=== PATIENT | female | born 1940 | race Caucasian/White ===

== ENCOUNTER 2016-04-04 14:24 | Emergency (ER) | payer MEDICARE ==
[~2016-04-04] VITALS: Ht 167.6 cm; Wt 44.0 kg
[~2016-04-04 14:24] MED LIST: ACCUNEB SOL3 ML/NE1 IN; ADVAIR DISK28 PUFFS IN; AZITHROMYCIN500 MG PO; IPRATROPIUM 2.2.5 ML IH; LEVAQUIN 750 M750 MG PO; MEDROL 4MG. DOSE4 MG PO; NICOTINE PATCH;14 MG TD; PREDNISONE 10MG10 MG PO; PREDNISONE 20MG20 MG PO; RITE AID ASPIRI81 M1 PO; RT-ACCUNEB S3 ML/AMP IN; SPIRIVA HA1 PUFF/INH IH; ZITHROMAX Z PA250 MG PO
--- NOTE | 2016-04-04 15:06 | Urgent Treatment Center Report ---
History of Present Issue Date/Time Seen by Provider 04/04/16 0242 Visit Reason Pt arrived:Walked Presenting Problem:PATIENT STATES HER EARS ARE STOPPED UP. PATIENT DENIES PAIN. Location if Accident: Onset of symptoms date/time:/ or onset unknown for:MEDICAL HX UNKNOWN Have you (or family members/close friends) recently traveled outside the [place]? N If Yes, where/when: Have you had exposure to infectious disease within the past month? TB? Other? Specify: c/o left ear "stopped up" and can't hear. Gradual in both ears over the last 2-3 weeks but worse in left ear last 3-4 days despite unknown oil for wax and trying to clean out ears. "I can't hardly hear on the phone". Denies ear pain, sore throat, headache. "Just these ears is all". Source patient Exam Limitations no limitations ALLERGIES Coded Allergies: No Known Allergies (03/24/16) Home Medications Active Scripts ALBUTEROL SULFATE (Rt-Accuneb 1.25MG/3ML) 1.25 MG IN QID #120 NEB Ref 2 Prov: 01/31/14 Ipratropium [place] (Ipratropium 0.5MG Neb Soln) 0.5 MG IH QID #120 ML Ref 2 Prov: 01/31/14 Prednisone (Prednisone 10MG) 10 MG PO DAILY #27 TAB Prov: 03/24/16 Reported Medications FLUTICASONE/SALMETEROL (Advair 500-50 Diskus) 1 PUFF IN BID 30 Days Tiotropium [place] (Spiriva) 1 PUFF IH DAILY 30 Days Aspirin ([facility] Aspirin Chewable) 81 MG PO DAILY History Medical History General CAD? No Angina: Yes [place]: No Hypertension? No Hyperlipidemia? No CHF? No DVT? No PE? No COPD? Yes Asthma? No Anemia? No GERD? No Gastric ulcers? No GI Bleed? No Hernia? No Thyroid Problems? No Hypothyroidism? No CVA? No Seizures? No Diabetes? No Renal Insuffiency? No UTI? No Stones? Yes BPH? No GB Disease: Yes Nephritic Syndrome? No Asplenia? No Hepatitis? No Sickle Cell Disease? No Arthritis? No Migraines? No Cataracts? No Glaucoma? No MRSA? No HIV? No TB? No Anxiety? No Depression? No Cancer? No More? No Immunization HX DT/Tetanus Unknown Flu 2014-15FSN Pneumonia Received In Past Surgical Hx Previous Surgery?Y Tubal Ligation Appendix [place] BILATERAL CATARACTS Family History Family HX Diabetes Yes CAD Yes Hypertension Yes Hyperlipidemia Yes Cancer No TB No Social History Smoking Hx Smoker: Former Smoker Tobacco: No Packs/day < 1 Pack Alcohol Alcohol: No Review of Systems All Other Systems Reviewed and Negative Constitutional denies fever, denies malaise Eyes denies no symptoms reported ENT see HPI. denies: ear discharge, nose discharge, nose congestion. Respiratory other (baseline cough, SOA) Gastrointestinal denies nausea Psychiatric/Neurological see HPI, denies other (dizziness) Physical Exam Vital Signs Vital Signs Date Time Temp Pulse Resp B/P Pulse O2 O2 Flow FiO2 Ox Delivery Rate 04/04 1433 98.3 108 22 119/96 91 General Appearance mild SOA, wearing portable oxygen, frail Eye Exam - bilateral eye normal exam Ear, Nose, Throat normal pharynx, cerumen impaction bilateral EACs blocking view of TMs Neck non-tender, supple Respiratory Status No: non productive cough. Cardiovascular no peripheral edema Neurologic alert Skin warm/dry Medical Decision Making LABS/Meds/Orders Pt receiving controlled substance in ED? No Progress [facility] Progress Notes Date 04/04/16 Time 1504 Comment Stephanie at BS irrigating EACs Despite 30 minutes attempting to irrigate w/ warm water and peroxide as well as using currette, unable to remove hard impacted cerumen. Departure Departure Time of Disposition 1539 Disposition DC Home or Self Care(routine) Clinical Impression Primary Impression: Impacted cerumen of both ears Secondary Impressions: Hearing decreased Qualifiers: Laterality: bilateral Qualified Code: H91.93 - Unspecified hearing loss, bilateral Condition STABLE Referrals Nuno Morton MD (Family) Patient Instructions DI for Cerumen Impaction Additional Instructions Debrox over the counter ear drops 3x/day for 4-7 days then return to [facility] or primary care for repeat ear irrigation no cotton swabs Discharge Counseling Counseled pt/family regarding diagnosis, medications/RX, home care, follow up needs Prescriptions Current Visit Scripts Carbamide Peroxide (Debrox) 1 DROP OT TID #1 BOTTLE for 4-7 days at 1541
--- NOTE | 2016-04-04 15:06 | Urgent Treatment Center Report ---
History of Present Issue Date/Time Seen by Provider 04/04/16 5322 Visit Reason Pt arrived:Walked Presenting Problem:PATIENT STATES HER EARS ARE STOPPED UP. PATIENT DENIES PAIN. Location if Accident: Onset of symptoms date/time:/ or onset unknown for:MEDICAL HX UNKNOWN Have you (or family members/close friends) recently traveled outside the [place]? N If Yes, where/when: Have you had exposure to infectious disease within the past month? TB? Other? Specify: c/o left ear "stopped up" and can't hear. Gradual in both ears over the last 2-3 weeks but worse in left ear last 3-4 days despite unknown oil for wax and trying to clean out ears. "I can't hardly hear on the phone". Denies ear pain, sore throat, headache. "Just these ears is all". Source patient Exam Limitations no limitations ALLERGIES Coded Allergies: No Known Allergies (03/24/16) Home Medications Active Scripts ALBUTEROL SULFATE (Rt-Accuneb 1.25MG/3ML) 1.25 MG IN QID #120 NEB Ref 2 Prov: 01/31/14 Ipratropium [place] (Ipratropium 0.5MG Neb Soln) 0.5 MG IH QID #120 ML Ref 2 Prov: 01/31/14 Prednisone (Prednisone 10MG) 10 MG PO DAILY #27 TAB Prov: 03/24/16 Reported Medications FLUTICASONE/SALMETEROL (Advair 500-50 Diskus) 1 PUFF IN BID 30 Days Tiotropium [place] (Spiriva) 1 PUFF IH DAILY 30 Days Aspirin ([facility] Aspirin Chewable) 81 MG PO DAILY History Medical History General CAD? No Angina: Yes [place]: No Hypertension? No Hyperlipidemia? No CHF? No DVT? No PE? No COPD? Yes Asthma? No Anemia? No GERD? No Gastric ulcers? No GI Bleed? No Hernia? No Thyroid Problems? No Hypothyroidism? No CVA? No Seizures? No Diabetes? No Renal Insuffiency? No UTI? No Stones? Yes BPH? No GB Disease: Yes Nephritic Syndrome? No Asplenia? No Hepatitis? No Sickle Cell Disease? No Arthritis? No Migraines? No Cataracts? No Glaucoma? No MRSA? No HIV? No TB? No Anxiety? No Depression? No Cancer? No More? No Immunization HX DT/Tetanus Unknown Flu 2014-15FSN Pneumonia Received In Past Surgical Hx Previous Surgery?Y Tubal Ligation Appendix [place] BILATERAL CATARACTS Family History Family HX Diabetes Yes CAD Yes Hypertension Yes Hyperlipidemia Yes Cancer No TB No Social History Smoking Hx Smoker: Former Smoker Tobacco: No Packs/day < 1 Pack Alcohol Alcohol: No Review of Systems All Other Systems Reviewed and Negative Constitutional denies fever, denies malaise Eyes denies no symptoms reported ENT see HPI. denies: ear discharge, nose discharge, nose congestion. Respiratory other (baseline cough, SOA) Gastrointestinal denies nausea Psychiatric/Neurological see HPI, denies other (dizziness) Physical Exam Vital Signs Vital Signs Date Time Temp Pulse Resp B/P Pulse O2 O2 Flow FiO2 Ox Delivery Rate 04/04 1433 98.3 108 22 119/96 91 General Appearance mild SOA, wearing portable oxygen, frail Eye Exam - bilateral eye normal exam Ear, Nose, Throat normal pharynx, cerumen impaction bilateral EACs blocking view of TMs Neck non-tender, supple Respiratory Status No: non productive cough. Cardiovascular no peripheral edema Neurologic alert Skin warm/dry Medical Decision Making LABS/Meds/Orders Pt receiving controlled substance in ED? No Progress [facility] Progress Notes Date 04/04/16 Time 1504 Comment Stephanie at BS irrigating EACs Despite 30 minutes attempting to irrigate w/ warm water and peroxide as well as using currette, unable to remove hard impacted cerumen. Departure Departure Time of Disposition 1539 Disposition DC Home or Self Care(routine) Clinical Impression Primary Impression: Impacted cerumen of both ears Secondary Impressions: Hearing decreased Qualifiers: Laterality: bilateral Qualified Code: H91.93 - Unspecified hearing loss, bilateral Condition STABLE Referrals Nuno Morton MD (Family) Patient Instructions DI for Cerumen Impaction Additional Instructions Debrox over the counter ear drops 3x/day for 4-7 days then return to [facility] or primary care for repeat ear irrigation no cotton swabs Discharge Counseling Counseled pt/family regarding diagnosis, medications/RX, home care, follow up needs Prescriptions Current Visit Scripts Carbamide Peroxide (Debrox) 1 DROP OT TID #1 BOTTLE for 4-7 days at 1545
[2016-04-04] MEDS ORDERED: DEBROX15 ML OT (15:41)
[2016-04-04 16:00] VITALS: BP 119/96
== END 2016-04-04 16:01 | disposition home or self-care (01) ==
LOC: UTC 14:24
DX: H91.93 Unspecified hearing loss, bilateral (principal); H61.23 Impacted cerumen, bilateral

== ENCOUNTER 2016-04-08 12:48 | Emergency (ER) | payer MEDICARE ==
[~2016-04-08] VITALS: Ht 167.6 cm; Wt 45.4 kg
[~2016-04-08 12:48] MED LIST changes: +DEBROX15 ML OT
--- NOTE | 2016-04-08 14:42 | Urgent Treatment Center Report ---
History of Present Issue Date/Time Seen by Provider 04/08/16 1423 Visit Reason Pt arrived:Walked Presenting Problem:L EAR IMPACTED W/ WAX Location if Accident: Onset of symptoms date/time:04/04/1611/11/1199 or onset unknown for: Have you (or family members/close friends) recently traveled outside the [place]? N If Yes, where/when: Have you had exposure to infectious disease within the past month? TB? Other? Specify: Return today still c/o decreased hearing on left. Was seen in clinic 4 days ago and found to have impacted cerumen that we were unable to remove in clinic. Has used debrox as instructed and returns today hoping to have cerumen completely removed as leaving for vacation later this week. Denies pain. Source patient Exam Limitations no limitations ALLERGIES Coded Allergies: No Known Allergies (03/24/16) Home Medications Active Scripts ALBUTEROL SULFATE (Rt-Accuneb 1.25MG/3ML) 1.25 MG IN QID #120 NEB Ref 2 Prov: 01/31/14 Ipratropium [place] (Ipratropium 0.5MG Neb Soln) 0.5 MG IH QID #120 ML Ref 2 Prov: 01/31/14 Prednisone (Prednisone 10MG) 10 MG PO DAILY #27 TAB Prov: 03/24/16 Carbamide Peroxide (Debrox) 1 DROP OT TID #1 BOTTLE Prov: 04/04/16 Reported Medications FLUTICASONE/SALMETEROL (Advair 500-50 Diskus) 1 PUFF IN BID 30 Days Tiotropium [place] (Spiriva) 1 PUFF IH DAILY 30 Days Aspirin ([facility] Aspirin Chewable) 81 MG PO DAILY History Medical History General CAD? No Angina: Yes [place]: No Hypertension? No Hyperlipidemia? No CHF? No DVT? No PE? No COPD? Yes Asthma? No Anemia? No GERD? No Gastric ulcers? No GI Bleed? No Hernia? No Thyroid Problems? No Hypothyroidism? No CVA? No Seizures? No Diabetes? No Renal Insuffiency? No UTI? No Stones? Yes BPH? No GB Disease: Yes Nephritic Syndrome? No Asplenia? No Hepatitis? No Sickle Cell Disease? No Arthritis? No Migraines? No Cataracts? No Glaucoma? No MRSA? No HIV? No TB? No Anxiety? No Depression? No Cancer? No More? No Immunization HX Ped.Immunizations UTD No DT/Tetanus Unknown Flu 2013-FSN Pneumonia Received In Past Surgical Hx Previous Surgery?Y Tubal Ligation Appendix [place] BILATERAL CATARACT[employer] Hx LMP N/A Family History Family HX Diabetes Yes CAD Yes Hypertension Yes Hyperlipidemia Yes Cancer No TB No Social History Smoking Hx Smoker: Former Smoker Tobacco: No Type N/A Packs/day < 1 Pack Are you/the child exposed to second-hand smoke: No Alcohol Alcohol: No Review of Systems All Other Systems Reviewed and Negative ENT see HPI. denies: ear discharge. Physical Exam Vital Signs Vital Signs Date Time Temp Pulse Resp B/P Pulse O2 O2 Flow FiO2 Ox Delivery Rate 04/08 1516 97.8 104 20 131/63 90 04/08 1327 97.8 104 20 131/63 90 04/08 1322 97.8 104 20 131/ 90 General Appearance normal appearance, no apparent distress Ear, Nose, Throat normal pharynx, minimal cerumen right EAC, left EAC impacted cerumen Neck non-tender, supple Respiratory Status Yes: productive cough. No: respiratory distress. Cardiovascular no peripheral edema Neurologic alert Skin warm/dry Medical Decision Making LABS/Meds/Orders Pt receiving controlled substance in ED? No Consult MD Physician Consult Consult/PCP Dr. Morton's office Time Called 1500 Reason FU appt for cerumen removal Comments Can see pt tomorrow at or Friday "almost anytime". Pt isn't sure because she has other appts this week and leaving for vacation . Pt wants to call and arrange appt. Procedures General/Other Procedure - Irrigation bilateral TMs NS and peroxide as well as use of currette. Sucessfully removed cerumen right EAC and TM normal; unable to completely remove cerumen in left EAC. TM remains not visible Departure Departure Time of Disposition 1458 Disposition DC Home or Self Care(routine) Clinical Impression Primary Impression: Impacted cerumen of left ear Condition STABLE Referrals Nuno Morton MD (Family) Call office today to make appt. Tomorrow at noon and most anytime Friday is available Patient Instructions DI for Cerumen Impaction Additional Instructions Some removed again today. Need to FU with primary care. They may had other tools to help remove the wax. Our method is not completely removed the impaction. Debrox 4-7 days before scheduled appt for removal if you do not see him this week before vacation Discharge Counseling Counseled pt/family regarding diagnosis, medications/RX, home care, follow up needs at 1029
[2016-04-08 15:16] VITALS: BP 131/63
== END 2016-04-08 15:16 | disposition home or self-care (01) ==
LOC: UTC 12:48
DX: H61.22 Impacted cerumen, left ear (principal)

== ENCOUNTER 2016-11-01 10:15 | Day surgery (SDC) | payer MEDICARE ==
[~2016-11-01] VITALS: Ht 167.6 cm; Wt 45.4 kg
--- NOTE | 2016-11-01 12:36 | Operative Note ---
Colonoscopy ([place]astasia) Procedure date: 11/01/16 Date of : 44 Procedure:Colonoscopy Colonoscopy with cold snare polypectomy and Endo Clip placement Indications: Mrs. Ahuja is a 76-year-old female who is here for diagnostic colonoscopy because of a positive Cologaurd thecal test. The patient has had some change in bowel caliber which is smaller and narrower. She reports no abdominal pain, weight loss, rectal bleeding or family history of colon cancer. This is her first colonoscopy. She does have a history of chronic obstructive pulmonary disease and emphysema. Performing Provider: Meg Oconnor MD Referrring Provider: Nuno Morton M.D. Sedation: MAC sedation Procedure: Prior to the procedure, a history and physical exam was performed, and patient medications and allergies were reviewed. The risks and benefits of the procedure and the sedation options and risks were discussed with the patient. All questions were answered and informed consent was obtained. Patient identification and proposed procedure were verified by the physician and the nurse. The patient was placed in a left lateral decubitus position. Throughout the procedure, the patient's blood pressure, pulse, and oxygen saturations were monitored continuously. Findings: On digital rectal examination there was normal rectal tone. There were no external hemorrhoids. The colonoscope was introduced through the anal canal to the rectum and advanced to the cecum. The ileocecal valve and appendiceal orifice were identified. The scope was advanced a short distance into the ileum which appeared grossly normal. The scope was then withdrawn into the colon. There were 8 colon polyps identified in the cecum 3, ascending 2, transverse 1, descending 1 and sigmoid 1. These ranged in size from 5-12 mm and were all removed via cold snare polypectomy. The largest 12 mm polyp in the sigmoid had some minor heme and an Endo Clip was placed over the polypectomy site with excellent hemostasis. The remaining cecum, ascending, transverse, descending, sigmoid and rectum were grossly normal. There were no other mucosal abnormalities identified. Upon retroflexion within the rectum there were grade 1 internal hemorrhoids. Impressions: 1. Colonic polyps 8 2. Small grade 1 internal hemorrhoids Recommendations: I will follow up the polyp pathology and recommend repeat colonoscopy again in 2 years based upon the polyp histology. I would encourage fiber supplementation on a long-term daily maintenance basis. Complications: None EBL (ml): 0 at 1230
[2016-11-01 14:04] VITALS: BP 134/75
== END 2016-11-01 14:07 | disposition home or self-care (01) ==
LOC: SDC 10:15
PROVIDERS: Internal Medicine Gastroenterology
PROC: 0DBN8ZX Excision of Sigmoid Colon, Via Natural or Artificial Opening Endoscopic, Diagnostic (ICD-10-PCS; 2016-11-01)
PROC: 0DBM8ZX Excision of Descending Colon, Via Natural or Artificial Opening Endoscopic, Diagnostic (ICD-10-PCS; 2016-11-01)
PROC: 0DBL8ZX Excision of Transverse Colon, Via Natural or Artificial Opening Endoscopic, Diagnostic (ICD-10-PCS; 2016-11-01)
PROC: 0DBK8ZX Excision of Ascending Colon, Via Natural or Artificial Opening Endoscopic, Diagnostic (ICD-10-PCS; 2016-11-01)
PROC: 0DBH8ZX Excision of Cecum, Via Natural or Artificial Opening Endoscopic, Diagnostic (ICD-10-PCS; principal; 2016-11-01 11:30)
DX: K63.5 Polyp of colon (principal); K64.0 First degree hemorrhoids

== ENCOUNTER → 2016-12-13 | Outpatient (CLI) | payer MEDICARE ==
[2016-12-13 08:46] LABS: HEMOGLOBIN 12.3 g/dL (12.2-16.2); LYMPH # 0.9 K/mm3 (0.7-4.5)
[2016-12-13 09:13] LABS: BUN 11 mg/dL (7-18); GFR (ESTIMATED) 82 ML/MIN (59-)
== END ==
LOC: LAB 08:24
PROVIDERS: Internal Medicine Adolescent Medicine
DX: I25.10 Atherosclerotic heart disease of native coronary artery without angina pectoris (principal)